=== PATIENT | male | born 1945 | race Caucasian/White ===

== ENCOUNTER 2018-02-03 18:36 | Emergency (ER) | payer MEDICARE, OTHER ==
[~2018-02-03] VITALS: Ht 177.8 cm; Wt 113.6 kg
[2018-02-03 18:40] VITALS: TEMP 97.4
[2018-02-03] MEDS ORDERED: ZOHYDRO ER10 MG PO (19:01)
[2018-02-03] MEDS ORDERED: VITAMIN D31000 I1 PO (19:02)
[2018-02-03] MEDS ORDERED: ZOCOR 40MG40 MG PO (19:02)
[2018-02-03] MEDS ORDERED: LYRICA 100MG C100 M1 PO (19:02)
[2018-02-03] MEDS ORDERED: NIACIN 64 MG-501 TA1 (19:03)
[2018-02-03] MEDS ORDERED: ASPIRIN 81M81 MG/TA2 PO (19:03)
[2018-02-03] MEDS ORDERED: PRINIVIL5 MG PO (19:03)
[2018-02-03 20:15] VITALS: BP 142/72; PULSE 74
== END 2018-02-03 20:15 | disposition home or self-care (01) ==
LOC: COL.ER 18:36
DX: S61.214A Laceration without foreign body of right ring finger without damage to nail, initial encounter (principal); Z23 Encounter for immunization; Z79.82 Long term (current) use of aspirin; W26.8XXA Contact with other sharp object(s), not elsewhere classified, initial encounter; Y92.009 Unspecified place in unspecified non-institutional (private) residence as the place of occurrence of the external cause